=== PATIENT | male | born 2000 | race African-American/Black ===

== ENCOUNTER 2023-09-13 17:25 | Emergency (ER) | payer SELFPAY ==
[~2023-09-13] VITALS: Ht 188 cm; Wt 73.5 kg
[2023-09-13 20:27] VITALS: BP 126/73; O2SAT 98
== END 2023-09-13 20:27 | disposition home or self-care (01) ==
LOC: ER 17:33
DX: S66.312A Strain of extensor muscle, fascia and tendon of right middle finger at wrist and hand level, initial encounter (principal); Z60.2 Problems related to living alone; X58.XXXA Exposure to other specified factors, initial encounter; Y93.89 Activity, other specified; Y92.89 Other specified places as the place of occurrence of the external cause; Y99.8 Other external cause status
CPT/HCPCS: 73100; 73130; A4606; A4663